=== PATIENT | male | born 1995 ===

== ENCOUNTER 2024-04-24 16:42 | Emergency (ER) | payer BC ==
[2024-04-24] MEDS: Ondansetron 4 MG Tab.DIS PO STA (17:55)
[2024-04-24] MEDS: Ketorolac 10 MG Tab PO STA (17:56)
[2024-04-24] MEDS: oxyCODONE 5 MG Tab PO STA (17:56)
== END 2024-04-24 19:46 | disposition home or self-care (01) ==
LOC: MW.ED 16:42
DX: M53.3 Sacrococcygeal disorders, not elsewhere classified (principal); Z87.891 Personal history of nicotine dependence; Z75.8 Other problems related to medical facilities and other health care; W10.9XXA Fall (on) (from) unspecified stairs and steps, initial encounter
CPT/HCPCS: 72131; 72192; 99283; A9270